=== PATIENT | male | born 1970 | race Caucasian/White ===

== ENCOUNTER 2020-05-06 11:58 | Emergency (ER) | payer SELFPAY ==
[~2020-05-06] VITALS: Ht 172.7 cm; Wt 83.9 kg
[2020-05-06] MEDS ORDERED: PHENYLEPHRINE HCL NASAL SPRAY 15 ML BOTTLE NS ONE ×2 (12:11→12:30)
--- NOTE | 2020-05-06 12:22 | NUR ---
BIBS FROM HOME TO ER BED 12. AAOX4. NOT IN RESP DISTRESS. AMBULATORY. CAME IN FOR NOSEBLEEDING SINCE THIS MORNING. MD WAS AT THE BEDSIDE. MEDICATED ORDERED.
[2020-05-06 12:49] VITALS: BP 111/63
--- NOTE | 2020-05-06 12:49 | NUR ---
REMAINDER OF MEDICATION DISPENSED ON DISCHERGE PER MD ORDERED. INSTRUCTION GIVEN ON USE.
--- NOTE | 2020-05-06 12:50 | NUR ---
Patient discharged to home in stable condition. Written and verbal after care instructions given. Patient verbalizes understanding of instruction. Pt ambulatory with a steady gait
== END 2020-05-06 12:59 | disposition home or self-care (01) ==
LOC: ER 12:05
DX: R04.0 Epistaxis (principal); I10 Essential (primary) hypertension

== ENCOUNTER 2022-02-25 19:07 | Emergency (ER) | payer SELFPAY ==
[~2022-02-25] VITALS: Ht 167.6 cm; Wt 86.2 kg
--- NOTE | 2022-02-25 19:15 | NUR ---
[id number]. PALPITATION X 25 MIN [employer] RAPID AFIB W/ HX. PT DENIES PAIN. PT A/OX4. TOLERATING R/A WELL WITH NO RESP DISTRESS. CONNECTED PT TO POX AND MONITOR. SAFETY MEASURES IN PLACE.
[2022-02-25] MEDS ORDERED: DILTIAZEM HCL 25 MG IV ONE ×2 (19:44→21:15)
--- NOTE | 2022-02-25 19:56 | NUR ---
LAC #18G S/L BLOOD COLLECTED AND SENT TO LAB
[2022-02-25] MEDS ORDERED: DILTIAZEM HCL 50 MG IV IV ONE ×2 (20:00→21:00)
--- NOTE | 2022-02-25 20:00 | NUR ---
DADO OPERATOR AT PT'S BEDSIDE
[2022-02-25 20:40] LABS: CALCIUM, SERUM 8.4 mg/dL (8.5-10.1); CARBON DIOXIDE 27 mmol/L (21-32); CHLORIDE 107 mmol/L (98-107); GLUCOSE 122 mg/dL (74-106); POTASSIUM 3.6 mmol/L (3.5-5.1); SODIUM SERUM 141 mmol/L (136-145); UREA NITROGEN, BLOOD 15 mg/dL (7-18)
[2022-02-25 21:08] LABS: BASOPHILS % (AUTO) 0.3 % (0.0-2.0); EOSINOPHILS % (AUTO) 2.1 % (0.0-6.0); HEMATOCRIT 42 % (39-51); HEMOGLOBIN 14.3 g/dL (13.5-17.5); LYMPHOCYTES # (AUTO) 1.9 K/uL (0.8-4.8); LYMPHOCYTES % (AUTO) 36.5 % (20.0-44.0); MEAN CORPUSCULAR HGB CONC 34 g/dl (31.0-36.0); MEAN CORPUSCULAR VOLUME 89 fL (80-96); MONOCYTES # (AUTO) 0.4 K/uL (0.1-1.30); MONOCYTES % (AUTO) 7.4 % (2.0-12.0); NEUTROPHILS # (AUTO) 2.8 K/uL (1.8-8.9); NEUTROPHILS % (AUTO) 53.7 % (43.0-81.0); PLATELET COUNT (AUTO) 186 K/uL (150-450); WHITE BLOOD COUNT (AUTO) 5.2 K/uL (4.3-11.0)
[2022-02-25] MEDS ORDERED: DILTIAZEM HCL 30 MG TABLET ONE (21:54)
[2022-02-25] MEDS ORDERED: DILTIAZEM HCL 30 MG TABLET PO ONE (22:00)
--- NOTE | 2022-02-25 22:03 | NUR ---
EMT AT PT'S BEDSIDE
[2022-02-25] MEDS ORDERED: ASPI-1169 PO (22:32)
[2022-02-25] MEDS ORDERED: DILT180C66 PO (22:32)
--- NOTE | 2022-02-25 23:43 | NUR ---
Patient discharged to home in stable condition. RX Written and verbal after care instructions given. Patient verbalizes understanding of instruction. IV removed. Catheter intact and site benign. Pressure and 4x4 applied to site. No bleeding noted. PT ambulatory with a steady gait
[2022-02-26 04:19] VITALS: BP 136/83
== END 2022-02-26 | disposition home or self-care (01) ==
LOC: ER 19:09
DX: I48.91 Unspecified atrial fibrillation (principal); I10 Essential (primary) hypertension; Z79.899 Other long term (current) drug therapy
CPT/HCPCS: 99291; 96374; 93005 ×2; 71045; 96376; 85025; 80048; 36415; 84484; J3490 ×2